=== PATIENT | male | born 1990 | race African-American/Black ===

== ENCOUNTER 2022-02-21 13:41 | Emergency (ER) | payer SELFPAY ==
[~2022-02-21] VITALS: Ht 182.9 cm; Wt 90.7 kg
--- NOTE | 2022-02-21 13:50 | NUR ---
BIBS C/O RASH/BLISTERS STARTED A WEEK AGO,SAME WHEN HE WAS DIAGNOSED WITH HERPES A YEAR AGO, WANTS TREATMENT.
[2022-02-21 13:55] VITALS: BP 132/84
--- NOTE | 2022-02-21 14:05 | NUR ---
SEEN AND EXAMINED BY DR CHARLES
[2022-02-21] MEDS ORDERED: ACYC400T19 PO (14:32)
--- NOTE | 2022-02-21 14:35 | NUR ---
Patient discharged to home in stable condition. Written and verbal after care instructions given. Patient verbalizes understanding of instruction.
== END 2022-02-21 14:35 | disposition home or self-care (01) ==
LOC: ER 13:42
DX: B00.9 Herpesviral infection, unspecified (principal)

== ENCOUNTER 2023-09-27 04:12 | Emergency (ER) | payer MEDICAID ==
[~2023-09-27] VITALS: Ht 182.9 cm; Wt 103.0 kg
[~2023-09-27 04:12] MED LIST: ACYC400T19 PO
[2023-09-27] MEDS ORDERED: dexaMETHasone SOD PHOSPHATE 1 ML ONE (06:38)
[2023-09-27] MEDS ORDERED: LIDOCAINE VISCOUS 2% UD 15 ML UDC ONE (06:38)
[2023-09-27] MEDS ORDERED: MAG HYDROX/AL HYDROX/SIMETH 30 ML UDC ONE (06:38)
[2023-09-27] MEDS ORDERED: FAMOTIDINE/PF INJ 20 MG/2 ML VIAL IV ONE (06:39)
[2023-09-27 06:58] LABS: BASOPHILS % (AUTO) 0.8 % (0.0-2.0); EOSINOPHILS % (AUTO) 0.8 % (0.0-6.0); HEMATOCRIT 48 % (39-51); HEMOGLOBIN 15.8 g/dL (13.5-17.5); LYMPHOCYTES # (AUTO) 1.2 K/uL (0.8-4.8); LYMPHOCYTES % (AUTO) 24.8 % (20.0-44.0); MEAN CORPUSCULAR HEMOGLOBIN 26 PG (26.0-33.0); MEAN CORPUSCULAR HGB CONC 33 g/dl (31.0-36.0); MEAN CORPUSCULAR VOLUME 79 fL (80-96); MONOCYTES # (AUTO) 0.4 K/uL (0.1-1.30); MONOCYTES % (AUTO) 7.5 % (2.0-12.0); NEUTROPHILS # (AUTO) 3.3 K/uL (1.8-8.9); NEUTROPHILS % (AUTO) 66.1 % (43.0-81.0); PLATELET COUNT (AUTO) 157 K/uL (150-450); RED BLOOD CELL COUNT(AUTO) 6.07 MIL/uL (4.5-6.0); RED CELL DISTRIBUTION WIDTH 14.6 % (11.5-15.0)
[2023-09-27] MEDS: IV NS 0.9% 1,000 ML BAG IV ONE ×2 (07:00→07:54)
[2023-09-27] MEDS ORDERED: FAMO-131 PO (07:01)
[2023-09-27] MEDS ORDERED: ONDA4TAB5 PO (07:01)
[2023-09-27] MEDS: FAMOTIDINE/PF INJ 20 MG/2 ML VIAL IV ONE (07:02)
[2023-09-27] MEDS: LIDOCAINE VISCOUS 2% UD 15 ML UDC MM ONE (07:02)
[2023-09-27] MEDS: MAG HYDROX/AL HYDROX/SIMETH 30 ML UDC PO ONE (07:02)
[2023-09-27] MEDS: dexaMETHasone SOD PHOSPHATE 10 MG/ML VIAL IV ONE (07:02)
[2023-09-27 07:07] LABS: CALCIUM, SERUM 9.1 mg/dL (8.5-10.1); CREATININE 1.1 mg/dL (0.6-1.3); POTASSIUM 3.9 mmol/L (3.5-5.1)
[2023-09-27 07:13] LABS: ALBUMIN 3.9 g/dL (3.4-5.0); BILIRUBIN,TOTAL 1.4 mg/dL (0.2-1.0); TOTAL PROTEIN, SERUM 7.8 g/dL (6.4-8.2)
[2023-09-27 10:24] VITALS: BP 122/80; TEMP 98.5; O2SAT 98
== END 2023-09-27 10:25 | disposition home or self-care (01) ==
LOC: ER 04:15
DX: R07.9 Chest pain, unspecified (principal); R10.13 Epigastric pain; R20.2 Paresthesia of skin
CPT/HCPCS: 99285; 96374; 71045; 96361; 96375; 93005; 85025; 83690; 36415; 80053; 84484 ×2; J1100; J3490; J7030 ×2

== ENCOUNTER 2023-09-30 15:58 | Emergency (ER) | payer MEDICAID ==
[~2023-09-30] VITALS: Ht 182.9 cm; Wt 97.5 kg
[~2023-09-30 15:58] MED LIST changes: +FAMO-131 PO; +ONDA4TAB5 PO
[2023-09-30 16:41] VITALS: BP 117/87; TEMP 98.2; O2SAT 98
[2023-09-30] MEDS ORDERED: CIPR7.5D9 LEFT EAR (17:03)
== END 2023-09-30 17:43 | disposition home or self-care (01) ==
LOC: ER 16:03
DX: H60.92 Unspecified otitis externa, left ear (principal)